=== PATIENT | female | born 1995 ===

== ENCOUNTER 2019-05-11 21:38 | Emergency (ER) | payer SELFPAY ==
[2019-05-11] MEDS: hydrOXYzine HCL 25 MG TAB PO (22:47)
== END 2019-05-11 23:37 | disposition home or self-care (01) ==
LOC: FTE 23:37
DX: F41.9 Anxiety disorder, unspecified (principal); H66.002 Acute suppurative otitis media without spontaneous rupture of ear drum, left ear; J45.901 Unspecified asthma with (acute) exacerbation
CPT/HCPCS: 93005; 99283-25